=== PATIENT | female | born 2000 | race Caucasian/White ===

== ENCOUNTER 2022-07-28 12:47 | Emergency (ER) | payer OTHER, SELFPAY ==
[2022-07-28 12:56] VITALS: BP 111/81; PULSE 113; RESP 16; TEMP 36.7; O2SAT 100; BMI 21.5
--- NOTE | 2022-07-28 12:56 | ED.NAVMDI ---
HPI - Nausea/Vomiting/Diarrhea General Chief complaint: Nausea/Vomiting/Diarrhea <SLIM Lizarraga Last Filed: 07/28/22 13:09> Stated complaint: vomiting diarrhea <SLIM Lizarraga Last Filed: 07/28/22 13:09> Time Seen by Provider: 07/28/22 15:48 <SLIM Lizarraga Last Filed: 07/28/22 13:09> Source: patient and family <Santino Brito - Last Filed: 07/28/22 18:47> Limitations: no limitations <Santino Brito - Last Filed: 07/28/22 18:47> History of Present Illness HPI Narrative: 22-year-old female with diffuse crampy abdominal pain saddle with nausea vomiting diarrhea last night. Unable to keep anything down. Patient has a history of ruptured ovarian cyst in the past in [place]. Patient takes no prescribed medication at this time. 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 Symptoms are moderate. No other complaints at this time. No recent travel history. Pain is sharp in nature and very crampy. <Santino Brito - Last Filed: 07/28/22 18:47> Related Data Home medications: Previous Rx's Medication Instructions Recorded ondansetron 4 mg disintegrating 4 mg PO TID PRN nausea and 07/28/22 tablet vomiting 4 days #12 tabs <SLIM Lizarraga Last Filed: 07/28/22 13:09> Allergies/Adverse reactions: Allergies Allergy/AdvReac Type Severity Reaction Status Date / Time No Known Allergies Allergy Verified 07/28/22 12:57 <SLIM Lizarraga Last Filed: 07/28/22 13:09> Review of Systems Review of Systems: General: No fever, positive chills, positive malaise Ophthalmology: No vision changes, no discharge ENT: No sore throat, no ear pain Cardiovascular: No chest pain, no peripheral edema, no shortness of breath Respiratory: No dyspnea, no sputum production, no cough Muscle skeletal: No malaise, no back pain, no neck pain, no extremity pain GI: Abdominal cramping nausea vomiting diarrhea : No dysuria, no urgency, no frequency Psychiatric: No depression, no suicidal ideation, no homicidal ideation Skin: No rash Immunology: No immunocompromised Hematology: No bleeding, no bruising <Santino Brito - Last Filed: 07/28/22 18:47> [facility] Social History Social History: Social History Alcohol intake: never Smoked in Last 30 Days: No Use of substances other than those prescribed or required for medical reasons: No Advance Directives: No Advance Directives Information Provided: No <SLIM Lizarraga - Last Filed: 07/28/22 13:09> Physical Exam Vital Signs: Vital Signs: Last Vital Signs Temp 98.4 F 07/28/22 17:48 Pulse 100 07/28/22 19:13 Resp 16 07/28/22 19:13 BP 113/69 07/28/22 19:13 Pulse Ox 96 07/28/22 19:13 O2 Del Method Room Air 07/28/22 19:13 BMI result Body Mass Index 21.5 <SLIM Lizarraga - Last Filed: 07/28/22 13:09> Vital Signs: Last Vital Signs Temp 98.4 F 07/28/22 17:48 Pulse 100 07/28/22 19:13 Resp 16 07/28/22 19:13 BP 113/69 07/28/22 19:13 Pulse Ox 96 07/28/22 19:13 O2 Del Method Room Air 07/28/22 19:13 BMI result Body Mass Index 21.5 <Santino Brito - Last Filed: 07/28/22 18:47> Vital Signs: Last Vital Signs Temp 98.4 F 07/28/22 17:48 Pulse 100 07/28/22 19:13 Resp 16 07/28/22 19:13 BP 113/69 07/28/22 19:13 Pulse Ox 96 07/28/22 19:13 O2 Del Method Room Air 07/28/22 19:13 BMI result Body Mass Index 21.5 <Kimberly Barakat NP - Last Filed: 07/29/22 11:33> General appearance: Awake, alert, cooperative, pale Skin: Warm, dry, no rash Eyes: PERRL, EOMI, no icterus ENT: Mucosa is dry oropharynx is otherwise clear uvula is midline Neck: Soft supple full range of motion, no nuchal rigidity Pulmonary: Breath sounds clear to auscultation bilaterally, no accessory muscle use Cardiovascular: Regular rate and rhythm, no murmurs and rubs Abdomen: Abdomen soft no rebound or guarding positive bowel sounds Extremities: No deformity, nontender, no peripheral edema noted Neuro: Alert oriented x3, no focal deficit Psych: Normal affect <Santino Brito - Last Filed: 07/28/22 18:47> Course Course Course Narrative: RME: 22yo F w/no sig PMHx c/o abdominal pain/cramping, watery diarrhea & vomiting since 3AM. LMP 3 years ago, pt with IUD. Denies urinary sx, recent travel, suspicious food intake. Denies recent abx Appears uncomfortable, abdomen soft/nontender Labs, UA, , stool studies ordered Full HPI, ROS and PE to be performed by primary ED provider. <SLIM Lizarraga - Last Filed: 07/28/22 13:09> Reevaluation(s) Reevaluation #1: Called informed that patient's stool sample was positive for norovirus. She is feeling better today <Kimberly Barakat NP - Last Filed: 07/29/22 11:33> Medications Administered Discontinued Medications Generic Name Dose Route Start Last Admin Trade Name Freq PRN Reason Stop Dose Admin Sodium Chloride 1,000 mls @ 999 mls/hr 07/28/22 16:00 07/28/22 16:04 Ns IV 07/28/22 17:00 999 mls/hr .Q1H1M TYLER Administration Sodium Chloride 1,000 mls @ 999 mls/hr 07/28/22 17:15 07/28/22 17:37 Ns IV 07/28/22 18:15 999 mls/hr .Q1H1M TYLER Administration Ondansetron HCl 4 mg 07/28/22 15:54 07/28/22 16:04 Ondansetron Hcl 4 Mg/2 Ml Vial IVPUSH 07/28/22 15:55 4 mg ONCE ONE Administration <SLIM Lizarraga - Last Filed: 07/28/22 13:09> Medications Administered Discontinued Medications Generic Name Dose Route Start Last Admin Trade Name Freq PRN Reason Stop Dose Admin Sodium Chloride 1,000 mls @ 999 mls/hr 07/28/22 16:00 07/28/22 16:04 Ns IV 07/28/22 17:00 999 mls/hr .Q1H1M TYLER Administration Sodium Chloride 1,000 mls @ 999 mls/hr 07/28/22 17:15 07/28/22 17:37 Ns IV 07/28/22 18:15 999 mls/hr .Q1H1M TYLER Administration Ondansetron HCl 4 mg 07/28/22 15:54 07/28/22 16:04 Ondansetron Hcl 4 Mg/2 Ml Vial IVPUSH 07/28/22 15:55 4 mg ONCE ONE Administration <Santino Brito - Last Filed: 07/28/22 18:47> Medications Administered Discontinued Medications Generic Name Dose Route Start Last Admin Trade Name Edvin PRN Reason Stop Dose Admin Sodium Chloride 1,000 mls @ 999 mls/hr 07/28/22 16:00 07/28/22 16:04 Ns IV 07/28/22 17:00 999 mls/hr .Q1H1M TYLER Administration Sodium Chloride 1,000 mls @ 999 mls/hr 07/28/22 17:15 07/28/22 17:37 Ns IV 07/28/22 18:15 999 mls/hr .Q1H1M TYLER Administration Ondansetron HCl 4 mg 07/28/22 15:54 07/28/22 16:04 Ondansetron Hcl 4 Mg/2 Ml Vial IVPUSH 07/28/22 15:55 4 mg ONCE ONE Administration <Kimberly Barakat NP - Last Filed: 07/29/22 11:33> Medical Decision Making Medical Decision Making MDM Narrative: Viral gastroenteritis Dehydration C diff less likely infectious diarrhea Viral syndrome No onset diabetes 22-year-old female with 24 hour history nausea vomiting diarrhea crampy abdominal pain. Decreased p.o. intake and concerns for dehydration. No similar episodes in the past. No recent travel history. 1000 mL normal saline IV bolus 4 mg Zofran IV Four 20:[address] Jacob will repeat BMP after hydration. Patient was noted to have elevated glucose and lower bicarb likely secondary to dehydration 17:03 will repeat 1000 mL normal saline IV bolus per for recheck and BMP Blood sugar has decreased electrolytes have improved electrolyte imbalance likely secondary to dehydration recommended follow-up electrolytes within 1 week and return if symptoms worsen <Santino Brito - Last Filed: 07/28/22 18:47> Lab Data Result Diagrams: 07/28/22 13:34 07/28/22 13:34 <SLIM Lizarraga - Last Filed: 07/28/22 13:09> Labs: Lab Results 07/28/22 07/28/22 07/28/22 Range/Units 13:34 13:34 13:34 WBC 10.1 (4.8-10.8) X10*3/uL RBC 5.29 (4.20-5.50) X10*6/uL Hgb 15.5 (12.0-16.0) g/dl Hct 45.0 (37.0-47.0) % MCV 85.1 (80.0-98.0) fL MCH 29.3 (27.0-33.0) pg MCHC 34.4 (31.0-35.0) g/dl RDW 12.2 (11.0-16.0) % Plt Count 231 (160-400) X10*3/uL MPV 10.1 (9.4-12.3) fL Immature Gran % (Auto) 0.4 (0.0-0.4) % Neut % (Auto) 93.7 H (45-73) % Lymph % (Auto) 2.0 L (20-40) % [place] % (Auto) 3.6 (2-11) % Eos % (Auto) 0.1 (0-4) % Baso % (Auto) 0.2 (0-2) % Lymph # (Auto) 0.2 L (1.2-4.9) X10*3/uL [place] # (Auto) 0.4 (0.1-1.2) X10*3/uL Eos # (Auto) 0.0 (0.0-0.4) X10*3/uL Baso # (Auto) 0.0 (0.0-0.2) X10*3/uL Abs Immat Gran (auto) 0.04 H (0.00-0.03) X10*3/uL Absolute Neuts (auto) 9.5 H (2.0-8.3) x10*3/uL Absolute Nucleated RBC 0.000 (0.0-0.012) X10*3/uL Nucleated RBC % (auto) 0.0 (0.0-0.2) /100WBC Smear Tech's Comments VERIFIED Sodium 138 (135-145) mmol/L Potassium 4.7 (3.3-5.1) mmol/L Chloride 107 (96-108) mmol/L Carbon Dioxide 17 L (22-29) mmol/L Anion Gap 19 (12-20) BUN 10 (9-16) mg/dL Creatinine 1.01 (0.5-1.4) mg/dL Estim Creat Clear Calc 74.8 Estimated GFR > 60 Random Glucose 184 H (60-115) mg/dL Calcium 10.3 H (8.4-10.2) mg/dL Magnesium 1.9 (1.6-2.6) mg/dL Total Bilirubin 1.3 H (0.0-1.0) mg/dL Direct Bilirubin 0.4 (0.0-0.5) mg/dL AST 20 (5-31) U/L ALT 13 (0-31) U/L Alkaline Phosphatase 64 (39-117) U/L Total Protein 8.4 H (6.5-8.0) g/dL Albumin 5.1 H (3.5-5.0) g/dL Lipase 22 (8-78) U/L Urine Color Dark Yellow Urine Appearance Cloudy Urine pH 6.0 (5.0-9.0) Ur Specific [place] >= 1.030 H (1.005-1.025) Urine Protein 30 (1+) H (Neg-Trace) mg/dL Urine Glucose (UA) Negative (Negative) mg/dL Urine Ketones >=160 (Negative) mg/dL Urine Blood Negative (Negative) Urine Nitrite Negative (Negative) Ur Leukocyte Esterase Negative (Negative) Urine RBC 0-2 (0-2) /HPF Urine WBC 0-5 (0-5) /HPF Ur Squamous Epith Cells 6-10 (0-2) /HPF Urine Bacteria None Seen (None Seen) Hyaline Casts 3-5 (0-2) /LPF Urine Test (NEGATIVE) Stl C. cayetanensis PCR (Not Detect.) Stool Rotavirus A PCR (Not Detect.) Stl Adenov F 40/41 PCR (Not Detect.) Stool Astrovirus (PCR) (Not Detect.) Stool Campylobacter PCR (Not Detect.) Stool Cryptosporidium PCR (Not Detect.) Stl Sh Tox Pr E STEC PCR (Not Detect.) Stool E coli O157 PCR (Not Detect.) Stl Enterotoxigenic E PCR (Not Detect.) Stool EPEC (PCR) (Not Detect.) Stool EAEC (PCR) (Not Detect.) Stl E. histolytica PCR (Not Detect.) Stool Giardia Lamblia PCR (Not Detect.) Stl P. shigelloides PCR (Not Detect.) Stool Salmonella PCR (Not Detect.) Stool Sapovirus (PCR) (Not Detect.) Stl Shigella/EIEC PCR (Not Detect.) St Y.enterocolitica PCR (Not Detect.) Stool Vibrio (PCR) (Not Detect.) Stl Vibrio cholerae PCR (Not Detect.) Stl Norovirus GI/GII PCR (Not Detect.) C. difficile Tox B Gene (Negative) 07/28/22 07/28/22 07/28/22 Range/Units 13:34 13:34 13:34 WBC (4.8-10.8) X10*3/uL RBC (4.20-5.50) X10*6/uL Hgb (12.0-16.0) g/dl Hct (37.0-47.0) % MCV (80.0-98.0) fL MCH (27.0-33.0) pg MCHC (31.0-35.0) g/dl RDW (11.0-16.0) % Plt Count (160-400) X10*3/uL MPV (9.4-12.3) fL Immature Gran % (Auto) (0.0-0.4) % Neut % (Auto) (45-73) % Lymph % (Auto) (20-40) % [place] % (Auto) (2-11) % Eos % (Auto) (0-4) % Baso % (Auto) (0-2) % Lymph # (Auto) (1.2-4.9) X10*3/uL [place] # (Auto) (0.1-1.2) X10*3/uL Eos # (Auto) (0.0-0.4) X10*3/uL Baso # (Auto) (0.0-0.2) X10*3/uL Abs Immat Gran (auto) (0.00-0.03) X10*3/uL Absolute Neuts (auto) (2.0-8.3) x10*3/uL Absolute Nucleated RBC (0.0-0.012) X10*3/uL Nucleated RBC % (auto) (0.0-0.2) /100WBC Smear Tech's Comments Sodium (135-145) mmol/L Potassium (3.3-5.1) mmol/L Chloride (96-108) mmol/L Carbon Dioxide (22-29) mmol/L Anion Gap (12-20) BUN (9-16) mg/dL Creatinine (0.5-1.4) mg/dL Estim Creat Clear Calc Estimated GFR Random Glucose (60-115) mg/dL Calcium (8.4-10.2) mg/dL Magnesium (1.6-2.6) mg/dL Total Bilirubin (0.0-1.0) mg/dL Direct Bilirubin (0.0-0.5) mg/dL AST (5-31) U/L ALT (0-31) U/L Alkaline Phosphatase (39-117) U/L Total Protein (6.5-8.0) g/dL Albumin (3.5-5.0) g/dL Lipase (8-78) U/L Urine Color Urine Appearance Urine pH (5.0-9.0) Ur Specific [place] (1.005-1.025) Urine Protein (Neg-Trace) mg/dL Urine Glucose (UA) (Negative) mg/dL Urine Ketones (Negative) mg/dL Urine Blood (Negative) Urine Nitrite (Negative) Ur Leukocyte Esterase (Negative) Urine RBC (0-2) /HPF Urine WBC (0-5) /HPF Ur Squamous Epith Cells (0-2) /HPF Urine Bacteria (None Seen) Hyaline Casts (0-2) /LPF Urine Test NEGATIVE (NEGATIVE) Stl C. cayetanensis PCR Not Detected (Not Detect.) Stool Rotavirus A PCR Not Detected (Not Detect.) Stl Adenov F 40/41 PCR Not Detected (Not Detect.) Stool Astrovirus (PCR) Not Detected (Not Detect.) Stool Campylobacter PCR Not Detected (Not Detect.) Stool Cryptosporidium PCR Not Detected (Not Detect.) Stl Sh Tox Pr E STEC PCR Not Detected (Not Detect.) Stool E coli O157 PCR Not applicable (Not Detect.) Stl Enterotoxigenic E PCR Not Detected (Not Detect.) Stool EPEC (PCR) Not Detected (Not Detect.) Stool EAEC (PCR) Not Detected (Not Detect.) Stl E. histolytica PCR Not Detected (Not Detect.) Stool Giardia Lamblia PCR Not Detected (Not Detect.) Stl P. shigelloides PCR Not Detected (Not Detect.) Stool Salmonella PCR Not Detected (Not Detect.) Stool Sapovirus (PCR) Not Detected (Not Detect.) Stl Shigella/EIEC PCR Not Detected (Not Detect.) St Y.enterocolitica PCR Not Detected (Not Detect.) Stool Vibrio (PCR) Not Detected (Not Detect.) Stl Vibrio cholerae PCR Not Detected (Not Detect.) Stl Norovirus GI/GII PCR Detected A (Not Detect.) C. difficile Tox B Gene NEGATIVE (Negative) 07/28/22 Range/Units 18:11 WBC (4.8-10.8) X10*3/uL RBC (4.20-5.50) X10*6/uL Hgb (12.0-16.0) g/dl Hct (37.0-47.0) % MCV (80.0-98.0) fL MCH (27.0-33.0) pg MCHC (31.0-35.0) g/dl RDW (11.0-16.0) % Plt Count (160-400) X10*3/uL MPV (9.4-12.3) fL Immature Gran % (Auto) (0.0-0.4) % Neut % (Auto) (45-73) % Lymph % (Auto) (20-40) % [place] % (Auto) (2-11) % Eos % (Auto) (0-4) % Baso % (Auto) (0-2) % Lymph # (Auto) (1.2-4.9) X10*3/uL [place] # (Auto) (0.1-1.2) X10*3/uL Eos # (Auto) (0.0-0.4) X10*3/uL Baso # (Auto) (0.0-0.2) X10*3/uL Abs Immat Gran (auto) (0.00-0.03) X10*3/uL Absolute Neuts (auto) (2.0-8.3) x10*3/uL Absolute Nucleated RBC (0.0-0.012) X10*3/uL Nucleated RBC % (auto) (0.0-0.2) /100WBC Smear Tech's Comments Sodium 139 (135-145) mmol/L Potassium 4.0 (3.3-5.1) mmol/L Chloride 112 H (96-108) mmol/L Carbon Dioxide 19 L (22-29) mmol/L Anion Gap 12 (12-20) BUN 8 L (9-16) mg/dL Creatinine 0.75 (0.5-1.4) mg/dL Estim Creat Clear Calc 100.7 Estimated GFR > 60 Random Glucose 96 (60-115) mg/dL Calcium 8.3 L D (8.4-10.2) mg/dL Magnesium (1.6-2.6) mg/dL Total Bilirubin (0.0-1.0) mg/dL Direct Bilirubin (0.0-0.5) mg/dL AST (5-31) U/L ALT (0-31) U/L Alkaline Phosphatase (39-117) U/L Total Protein (6.5-8.0) g/dL Albumin (3.5-5.0) g/dL Lipase (8-78) U/L Urine Color Urine Appearance Urine pH (5.0-9.0) Ur Specific [place] (1.005-1.025) Urine Protein (Neg-Trace) mg/dL Urine Glucose (UA) (Negative) mg/dL Urine Ketones (Negative) mg/dL Urine Blood (Negative) Urine Nitrite (Negative) Ur Leukocyte Esterase (Negative) Urine RBC (0-2) /HPF Urine WBC (0-5) /HPF Ur Squamous Epith Cells (0-2) /HPF Urine Bacteria (None Seen) Hyaline Casts (0-2) /LPF Urine Test (NEGATIVE) Stl C. cayetanensis PCR (Not Detect.) Stool Rotavirus A PCR (Not Detect.) Stl Adenov F 40/41 PCR (Not Detect.) Stool Astrovirus (PCR) (Not Detect.) Stool Campylobacter PCR (Not Detect.) Stool Cryptosporidium PCR (Not Detect.) Stl Sh Tox Pr E STEC PCR (Not Detect.) Stool E coli O157 PCR (Not Detect.) Stl Enterotoxigenic E PCR (Not Detect.) Stool EPEC (PCR) (Not Detect.) Stool EAEC (PCR) (Not Detect.) Stl E. histolytica PCR (Not Detect.) Stool Giardia Lamblia PCR (Not Detect.) Stl P. shigelloides PCR (Not Detect.) Stool Salmonella PCR (Not Detect.) Stool Sapovirus (PCR) (Not Detect.) Stl Shigella/EIEC PCR (Not Detect.) St Y.enterocolitica PCR (Not Detect.) Stool Vibrio (PCR) (Not Detect.) Stl Vibrio cholerae PCR (Not Detect.) Stl Norovirus GI/GII PCR (Not Detect.) C. difficile Tox B Gene (Negative) <SLIM Lizarraga - Last Filed: 07/28/22 13:09> Lab Results 07/28/22 07/28/22 07/28/22 Range/Units 13:34 13:34 13:34 WBC 10.1 (4.8-10.8) X10*3/uL RBC 5.29 (4.20-5.50) X10*6/uL Hgb 15.5 (12.0-16.0) g/dl Hct 45.0 (37.0-47.0) % MCV 85.1 (80.0-98.0) fL MCH 29.3 (27.0-33.0) pg MCHC 34.4 (31.0-35.0) g/dl RDW 12.2 (11.0-16.0) % Plt Count 231 (160-400) X10*3/uL MPV 10.1 (9.4-12.3) fL Immature Gran % (Auto) 0.4 (0.0-0.4) % Neut % (Auto) 93.7 H (45-73) % Lymph % (Auto) 2.0 L (20-40) % [place] % (Auto) 3.6 (2-11) % Eos % (Auto) 0.1 (0-4) % Baso % (Auto) 0.2 (0-2) % Lymph # (Auto) 0.2 L (1.2-4.9) X10*3/uL [place] # (Auto) 0.4 (0.1-1.2) X10*3/uL Eos # (Auto) 0.0 (0.0-0.4) X10*3/uL Baso # (Auto) 0.0 (0.0-0.2) X10*3/uL Abs Immat Gran (auto) 0.04 H (0.00-0.03) X10*3/uL Absolute Neuts (auto) 9.5 H (2.0-8.3) x10*3/uL Absolute Nucleated RBC 0.000 (0.0-0.012) X10*3/uL Nucleated RBC % (auto) 0.0 (0.0-0.2) /100WBC Smear Tech's Comments VERIFIED Sodium 138 (135-145) mmol/L Potassium 4.7 (3.3-5.1) mmol/L Chloride 107 (96-108) mmol/L Carbon Dioxide 17 L (22-29) mmol/L Anion Gap 19 (12-20) BUN 10 (9-16) mg/dL Creatinine 1.01 (0.5-1.4) mg/dL Estim Creat Clear Calc 74.8 Estimated GFR > 60 Random Glucose 184 H (60-115) mg/dL Calcium 10.3 H (8.4-10.2) mg/dL Magnesium 1.9 (1.6-2.6) mg/dL Total Bilirubin 1.3 H (0.0-1.0) mg/dL Direct Bilirubin 0.4 (0.0-0.5) mg/dL AST 20 (5-31) U/L ALT 13 (0-31) U/L Alkaline Phosphatase 64 (39-117) U/L Total Protein 8.4 H (6.5-8.0) g/dL Albumin 5.1 H (3.5-5.0) g/dL Lipase 22 (8-78) U/L Urine Color Dark Yellow Urine Appearance Cloudy Urine pH 6.0 (5.0-9.0) Ur Specific [place] >= 1.030 H (1.005-1.025) Urine Protein 30 (1+) H (Neg-Trace) mg/dL Urine Glucose (UA) Negative (Negative) mg/dL Urine Ketones >=160 (Negative) mg/dL Urine Blood Negative (Negative) Urine Nitrite Negative (Negative) Ur Leukocyte Esterase Negative (Negative) Urine RBC 0-2 (0-2) /HPF Urine WBC 0-5 (0-5) /HPF Ur Squamous Epith Cells 6-10 (0-2) /HPF Urine Bacteria None Seen (None Seen) Hyaline Casts 3-5 (0-2) /LPF Urine Test (NEGATIVE) Stl C. cayetanensis PCR (Not Detect.) Stool Rotavirus A PCR (Not Detect.) Stl Adenov F 40/41 PCR (Not Detect.) Stool Astrovirus (PCR) (Not Detect.) Stool Campylobacter PCR (Not Detect.) Stool Cryptosporidium PCR (Not Detect.) Stl Sh Tox Pr E STEC PCR (Not Detect.) Stool E coli O157 PCR (Not Detect.) Stl Enterotoxigenic E PCR (Not Detect.) Stool EPEC (PCR) (Not Detect.) Stool EAEC (PCR) (Not Detect.) Stl E. histolytica PCR (Not Detect.) Stool Giardia Lamblia PCR (Not Detect.) Stl P. shigelloides PCR (Not Detect.) Stool Salmonella PCR (Not Detect.) Stool Sapovirus (PCR) (Not Detect.) Stl Shigella/EIEC PCR (Not Detect.) St Y.enterocolitica PCR (Not Detect.) Stool Vibrio (PCR) (Not Detect.) Stl Vibrio cholerae PCR (Not Detect.) Stl Norovirus GI/GII PCR (Not Detect.) C. difficile Tox B Gene (Negative) 07/28/22 07/28/22 07/28/22 Range/Units 13:34 13:34 13:34 WBC (4.8-10.8) X10*3/uL RBC (4.20-5.50) X10*6/uL Hgb (12.0-16.0) g/dl Hct (37.0-47.0) % MCV (80.0-98.0) fL MCH (27.0-33.0) pg MCHC (31.0-35.0) g/dl RDW (11.0-16.0) % Plt Count (160-400) X10*3/uL MPV (9.4-12.3) fL Immature Gran % (Auto) (0.0-0.4) % Neut % (Auto) (45-73) % Lymph % (Auto) (20-40) % [place] % (Auto) (2-11) % Eos % (Auto) (0-4) % Baso % (Auto) (0-2) % Lymph # (Auto) (1.2-4.9) X10*3/uL [place] # (Auto) (0.1-1.2) X10*3/uL Eos # (Auto) (0.0-0.4) X10*3/uL Baso # (Auto) (0.0-0.2) X10*3/uL Abs Immat Gran (auto) (0.00-0.03) X10*3/uL Absolute Neuts (auto) (2.0-8.3) x10*3/uL Absolute Nucleated RBC (0.0-0.012) X10*3/uL Nucleated RBC % (auto) (0.0-0.2) /100WBC Smear Tech's Comments Sodium (135-145) mmol/L Potassium (3.3-5.1) mmol/L Chloride (96-108) mmol/L Carbon Dioxide (22-29) mmol/L Anion Gap (12-20) BUN (9-16) mg/dL Creatinine (0.5-1.4) mg/dL Estim Creat Clear Calc Estimated GFR Random Glucose (60-115) mg/dL Calcium (8.4-10.2) mg/dL Magnesium (1.6-2.6) mg/dL Total Bilirubin (0.0-1.0) mg/dL Direct Bilirubin (0.0-0.5) mg/dL AST (5-31) U/L ALT (0-31) U/L Alkaline Phosphatase (39-117) U/L Total Protein (6.5-8.0) g/dL Albumin (3.5-5.0) g/dL Lipase (8-78) U/L Urine Color Urine Appearance Urine pH (5.0-9.0) Ur Specific [place] (1.005-1.025) Urine Protein (Neg-Trace) mg/dL Urine Glucose (UA) (Negative) mg/dL Urine Ketones (Negative) mg/dL Urine Blood (Negative) Urine Nitrite (Negative) Ur Leukocyte Esterase (Negative) Urine RBC (0-2) /HPF Urine WBC (0-5) /HPF Ur Squamous Epith Cells (0-2) /HPF Urine Bacteria (None Seen) Hyaline Casts (0-2) /LPF Urine Test NEGATIVE (NEGATIVE) Stl C. cayetanensis PCR Not Detected (Not Detect.) Stool Rotavirus A PCR Not Detected (Not Detect.) Stl Adenov F 40/41 PCR Not Detected (Not Detect.) Stool Astrovirus (PCR) Not Detected (Not Detect.) Stool Campylobacter PCR Not Detected (Not Detect.) Stool Cryptosporidium PCR Not Detected (Not Detect.) Stl Sh Tox Pr E STEC PCR Not Detected (Not Detect.) Stool E coli O157 PCR Not applicable (Not Detect.) Stl Enterotoxigenic E PCR Not Detected (Not Detect.) Stool EPEC (PCR) Not Detected (Not Detect.) Stool EAEC (PCR) Not Detected (Not Detect.) Stl E. histolytica PCR Not Detected (Not Detect.) Stool Giardia Lamblia PCR Not Detected (Not Detect.) Stl P. shigelloides PCR Not Detected (Not Detect.) Stool Salmonella PCR Not Detected (Not Detect.) Stool Sapovirus (PCR) Not Detected (Not Detect.) Stl Shigella/EIEC PCR Not Detected (Not Detect.) St Y.enterocolitica PCR Not Detected (Not Detect.) Stool Vibrio (PCR) Not Detected (Not Detect.) Stl Vibrio cholerae PCR Not Detected (Not Detect.) Stl Norovirus GI/GII PCR Detected A (Not Detect.) C. difficile Tox B Gene NEGATIVE (Negative) 07/28/22 Range/Units 18:11 WBC (4.8-10.8) X10*3/uL RBC (4.20-5.50) X10*6/uL Hgb (12.0-16.0) g/dl Hct (37.0-47.0) % MCV (80.0-98.0) fL MCH (27.0-33.0) pg MCHC (31.0-35.0) g/dl RDW (11.0-16.0) % Plt Count (160-400) X10*3/uL MPV (9.4-12.3) fL Immature Gran % (Auto) (0.0-0.4) % Neut % (Auto) (45-73) % Lymph % (Auto) (20-40) % [place] % (Auto) (2-11) % Eos % (Auto) (0-4) % Baso % (Auto) (0-2) % Lymph # (Auto) (1.2-4.9) X10*3/uL [place] # (Auto) (0.1-1.2) X10*3/uL Eos # (Auto) (0.0-0.4) X10*3/uL Baso # (Auto) (0.0-0.2) X10*3/uL Abs Immat Gran (auto) (0.00-0.03) X10*3/uL Absolute Neuts (auto) (2.0-8.3) x10*3/uL Absolute Nucleated RBC (0.0-0.012) X10*3/uL Nucleated RBC % (auto) (0.0-0.2) /100WBC Smear Tech's Comments Sodium 139 (135-145) mmol/L Potassium 4.0 (3.3-5.1) mmol/L Chloride 112 H (96-108) mmol/L Carbon Dioxide 19 L (22-29) mmol/L Anion Gap 12 (12-20) BUN 8 L (9-16) mg/dL Creatinine 0.75 (0.5-1.4) mg/dL Estim Creat Clear Calc 100.7 Estimated GFR > 60 Random Glucose 96 (60-115) mg/dL Calcium 8.3 L D (8.4-10.2) mg/dL Magnesium (1.6-2.6) mg/dL Total Bilirubin (0.0-1.0) mg/dL Direct Bilirubin (0.0-0.5) mg/dL AST (5-31) U/L ALT (0-31) U/L Alkaline Phosphatase (39-117) U/L Total Protein (6.5-8.0) g/dL Albumin (3.5-5.0) g/dL Lipase (8-78) U/L Urine Color Urine Appearance Urine pH (5.0-9.0) Ur Specific [place] (1.005-1.025) Urine Protein (Neg-Trace) mg/dL Urine Glucose (UA) (Negative) mg/dL Urine Ketones (Negative) mg/dL Urine Blood (Negative) Urine Nitrite (Negative) Ur Leukocyte Esterase (Negative) Urine RBC (0-2) /HPF Urine WBC (0-5) /HPF Ur Squamous Epith Cells (0-2) /HPF Urine Bacteria (None Seen) Hyaline Casts (0-2) /LPF Urine Test (NEGATIVE) Stl C. cayetanensis PCR (Not Detect.) Stool Rotavirus A PCR (Not Detect.) Stl Adenov F 40/41 PCR (Not Detect.) Stool Astrovirus (PCR) (Not Detect.) Stool Campylobacter PCR (Not Detect.) Stool Cryptosporidium PCR (Not Detect.) Stl Sh Tox Pr E STEC PCR (Not Detect.) Stool E coli O157 PCR (Not Detect.) Stl Enterotoxigenic E PCR (Not Detect.) Stool EPEC (PCR) (Not Detect.) Stool EAEC (PCR) (Not Detect.) Stl E. histolytica PCR (Not Detect.) Stool Giardia Lamblia PCR (Not Detect.) Stl P. shigelloides PCR (Not Detect.) Stool Salmonella PCR (Not Detect.) Stool Sapovirus (PCR) (Not Detect.) Stl Shigella/EIEC PCR (Not Detect.) St Y.enterocolitica PCR (Not Detect.) Stool Vibrio (PCR) (Not Detect.) Stl Vibrio cholerae PCR (Not Detect.) Stl Norovirus GI/GII PCR (Not Detect.) C. difficile Tox B Gene (Negative) <Santino Brito - Last Filed: 07/28/22 18:47> Lab Results 07/28/22 07/28/22 07/28/22 Range/Units 13:34 13:34 13:34 WBC 10.1 (4.8-10.8) X10*3/uL RBC 5.29 (4.20-5.50) X10*6/uL Hgb 15.5 (12.0-16.0) g/dl Hct 45.0 (37.0-47.0) % MCV 85.1 (80.0-98.0) fL MCH 29.3 (27.0-33.0) pg MCHC 34.4 (31.0-35.0) g/dl RDW 12.2 (11.0-16.0) % Plt Count 231 (160-400) X10*3/uL MPV 10.1 (9.4-12.3) fL Immature Gran % (Auto) 0.4 (0.0-0.4) % Neut % (Auto) 93.7 H (45-73) % Lymph % (Auto) 2.0 L (20-40) % [place] % (Auto) 3.6 (2-11) % Eos % (Auto) 0.1 (0-4) % Baso % (Auto) 0.2 (0-2) % Lymph # (Auto) 0.2 L (1.2-4.9) X10*3/uL [place] # (Auto) 0.4 (0.1-1.2) X10*3/uL Eos # (Auto) 0.0 (0.0-0.4) X10*3/uL Baso # (Auto) 0.0 (0.0-0.2) X10*3/uL Abs Immat Gran (auto) 0.04 H (0.00-0.03) X10*3/uL Absolute Neuts (auto) 9.5 H (2.0-8.3) x10*3/uL Absolute Nucleated RBC 0.000 (0.0-0.012) X10*3/uL Nucleated RBC % (auto) 0.0 (0.0-0.2) /100WBC Smear Tech's Comments VERIFIED Sodium 138 (135-145) mmol/L Potassium 4.7 (3.3-5.1) mmol/L Chloride 107 (96-108) mmol/L Carbon Dioxide 17 L (22-29) mmol/L Anion Gap 19 (12-20) BUN 10 (9-16) mg/dL Creatinine 1.01 (0.5-1.4) mg/dL Estim Creat Clear Calc 74.8 Estimated GFR > 60 Random Glucose 184 H (60-115) mg/dL Calcium 10.3 H (8.4-10.2) mg/dL Magnesium 1.9 (1.6-2.6) mg/dL Total Bilirubin 1.3 H (0.0-1.0) mg/dL Direct Bilirubin 0.4 (0.0-0.5) mg/dL AST 20 (5-31) U/L ALT 13 (0-31) U/L Alkaline Phosphatase 64 (39-117) U/L Total Protein 8.4 H (6.5-8.0) g/dL Albumin 5.1 H (3.5-5.0) g/dL Lipase 22 (8-78) U/L Urine Color Dark Yellow Urine Appearance Cloudy Urine pH 6.0 (5.0-9.0) Ur Specific [place] >= 1.030 H (1.005-1.025) Urine Protein 30 (1+) H (Neg-Trace) mg/dL Urine Glucose (UA) Negative (Negative) mg/dL Urine Ketones >=160 (Negative) mg/dL Urine Blood Negative (Negative) Urine Nitrite Negative (Negative) Ur Leukocyte Esterase Negative (Negative) Urine RBC 0-2 (0-2) /HPF Urine WBC 0-5 (0-5) /HPF Ur Squamous Epith Cells 6-10 (0-2) /HPF Urine Bacteria None Seen (None Seen) Hyaline Casts 3-5 (0-2) /LPF Urine Test (NEGATIVE) Stl C. cayetanensis PCR (Not Detect.) Stool Rotavirus A PCR (Not Detect.) Stl Adenov F 40/41 PCR (Not Detect.) Stool Astrovirus (PCR) (Not Detect.) Stool Campylobacter PCR (Not Detect.) Stool Cryptosporidium PCR (Not Detect.) Stl Sh Tox Pr E STEC PCR (Not Detect.) Stool E coli O157 PCR (Not Detect.) Stl Enterotoxigenic E PCR (Not Detect.) Stool EPEC (PCR) (Not Detect.) Stool EAEC (PCR) (Not Detect.) Stl E. histolytica PCR (Not Detect.) Stool Giardia Lamblia PCR (Not Detect.) Stl P. shigelloides PCR (Not Detect.) Stool Salmonella PCR (Not Detect.) Stool Sapovirus (PCR) (Not Detect.) Stl Shigella/EIEC PCR (Not Detect.) St Y.enterocolitica PCR (Not Detect.) Stool Vibrio (PCR) (Not Detect.) Stl Vibrio cholerae PCR (Not Detect.) Stl Norovirus GI/GII PCR (Not Detect.) C. difficile Tox B Gene (Negative) 07/28/22 07/28/22 07/28/22 Range/Units 13:34 13:34 13:34 WBC (4.8-10.8) X10*3/uL RBC (4.20-5.50) X10*6/uL Hgb (12.0-16.0) g/dl Hct (37.0-47.0) % MCV (80.0-98.0) fL MCH (27.0-33.0) pg MCHC (31.0-35.0) g/dl RDW (11.0-16.0) % Plt Count (160-400) X10*3/uL MPV (9.4-12.3) fL Immature Gran % (Auto) (0.0-0.4) % Neut % (Auto) (45-73) % Lymph % (Auto) (20-40) % [place] % (Auto) (2-11) % Eos % (Auto) (0-4) % Baso % (Auto) (0-2) % Lymph # (Auto) (1.2-4.9) X10*3/uL [place] # (Auto) (0.1-1.2) X10*3/uL Eos # (Auto) (0.0-0.4) X10*3/uL Baso # (Auto) (0.0-0.2) X10*3/uL Abs Immat Gran (auto) (0.00-0.03) X10*3/uL Absolute Neuts (auto) (2.0-8.3) x10*3/uL Absolute Nucleated RBC (0.0-0.012) X10*3/uL Nucleated RBC % (auto) (0.0-0.2) /100WBC Smear Tech's Comments Sodium (135-145) mmol/L Potassium (3.3-5.1) mmol/L Chloride (96-108) mmol/L Carbon Dioxide (22-29) mmol/L Anion Gap (12-20) BUN (9-16) mg/dL Creatinine (0.5-1.4) mg/dL Estim Creat Clear Calc Estimated GFR Random Glucose (60-115) mg/dL Calcium (8.4-10.2) mg/dL Magnesium (1.6-2.6) mg/dL Total Bilirubin (0.0-1.0) mg/dL Direct Bilirubin (0.0-0.5) mg/dL AST (5-31) U/L ALT (0-31) U/L Alkaline Phosphatase (39-117) U/L Total Protein (6.5-8.0) g/dL Albumin (3.5-5.0) g/dL Lipase (8-78) U/L Urine Color Urine Appearance Urine pH (5.0-9.0) Ur Specific [place] (1.005-1.025) Urine Protein (Neg-Trace) mg/dL Urine Glucose (UA) (Negative) mg/dL Urine Ketones (Negative) mg/dL Urine Blood (Negative) Urine Nitrite (Negative) Ur Leukocyte Esterase (Negative) Urine RBC (0-2) /HPF Urine WBC (0-5) /HPF Ur Squamous Epith Cells (0-2) /HPF Urine Bacteria (None Seen) Hyaline Casts (0-2) /LPF Urine Test NEGATIVE (NEGATIVE) Stl C. cayetanensis PCR Not Detected (Not Detect.) Stool Rotavirus A PCR Not Detected (Not Detect.) Stl Adenov F 40/41 PCR Not Detected (Not Detect.) Stool Astrovirus (PCR) Not Detected (Not Detect.) Stool Campylobacter PCR Not Detected (Not Detect.) Stool Cryptosporidium PCR Not Detected (Not Detect.) Stl Sh Tox Pr E STEC PCR Not Detected (Not Detect.) Stool E coli O157 PCR Not applicable (Not Detect.) Stl Enterotoxigenic E PCR Not Detected (Not Detect.) Stool EPEC (PCR) Not Detected (Not Detect.) Stool EAEC (PCR) Not Detected (Not Detect.) Stl E. histolytica PCR Not Detected (Not Detect.) Stool Giardia Lamblia PCR Not Detected (Not Detect.) Stl P. shigelloides PCR Not Detected (Not Detect.) Stool Salmonella PCR Not Detected (Not Detect.) Stool Sapovirus (PCR) Not Detected (Not Detect.) Stl Shigella/EIEC PCR Not Detected (Not Detect.) St Y.enterocolitica PCR Not Detected (Not Detect.) Stool Vibrio (PCR) Not Detected (Not Detect.) Stl Vibrio cholerae PCR Not Detected (Not Detect.) Stl Norovirus GI/GII PCR Detected A (Not Detect.) C. difficile Tox B Gene NEGATIVE (Negative) 07/28/22 Range/Units 18:11 WBC (4.8-10.8) X10*3/uL RBC (4.20-5.50) X10*6/uL Hgb (12.0-16.0) g/dl Hct (37.0-47.0) % MCV (80.0-98.0) fL MCH (27.0-33.0) pg MCHC (31.0-35.0) g/dl RDW (11.0-16.0) % Plt Count (160-400) X10*3/uL MPV (9.4-12.3) fL Immature Gran % (Auto) (0.0-0.4) % Neut % (Auto) (45-73) % Lymph % (Auto) (20-40) % [place] % (Auto) (2-11) % Eos % (Auto) (0-4) % Baso % (Auto) (0-2) % Lymph # (Auto) (1.2-4.9) X10*3/uL [place] # (Auto) (0.1-1.2) X10*3/uL Eos # (Auto) (0.0-0.4) X10*3/uL Baso # (Auto) (0.0-0.2) X10*3/uL Abs Immat Gran (auto) (0.00-0.03) X10*3/uL Absolute Neuts (auto) (2.0-8.3) x10*3/uL Absolute Nucleated RBC (0.0-0.012) X10*3/uL Nucleated RBC % (auto) (0.0-0.2) /100WBC Smear Tech's Comments Sodium 139 (135-145) mmol/L Potassium 4.0 (3.3-5.1) mmol/L Chloride 112 H (96-108) mmol/L Carbon Dioxide 19 L (22-29) mmol/L Anion Gap 12 (12-20) BUN 8 L (9-16) mg/dL Creatinine 0.75 (0.5-1.4) mg/dL Estim Creat Clear Calc 100.7 Estimated GFR > 60 Random Glucose 96 (60-115) mg/dL Calcium 8.3 L D (8.4-10.2) mg/dL Magnesium (1.6-2.6) mg/dL Total Bilirubin (0.0-1.0) mg/dL Direct Bilirubin (0.0-0.5) mg/dL AST (5-31) U/L ALT (0-31) U/L Alkaline Phosphatase (39-117) U/L Total Protein (6.5-8.0) g/dL Albumin (3.5-5.0) g/dL Lipase (8-78) U/L Urine Color Urine Appearance Urine pH (5.0-9.0) Ur Specific [place] (1.005-1.025) Urine Protein (Neg-Trace) mg/dL Urine Glucose (UA) (Negative) mg/dL Urine Ketones (Negative) mg/dL Urine Blood (Negative) Urine Nitrite (Negative) Ur Leukocyte Esterase (Negative) Urine RBC (0-2) /HPF Urine WBC (0-5) /HPF Ur Squamous Epith Cells (0-2) /HPF Urine Bacteria (None Seen) Hyaline Casts (0-2) /LPF Urine Test (NEGATIVE) Stl C. cayetanensis PCR (Not Detect.) Stool Rotavirus A PCR (Not Detect.) Stl Adenov F 40/41 PCR (Not Detect.) Stool Astrovirus (PCR) (Not Detect.) Stool Campylobacter PCR (Not Detect.) Stool Cryptosporidium PCR (Not Detect.) Stl Sh Tox Pr E STEC PCR (Not Detect.) Stool E coli O157 PCR (Not Detect.) Stl Enterotoxigenic E PCR (Not Detect.) Stool EPEC (PCR) (Not Detect.) Stool EAEC (PCR) (Not Detect.) Stl E. histolytica PCR (Not Detect.) Stool Giardia Lamblia PCR (Not Detect.) Stl P. shigelloides PCR (Not Detect.) Stool Salmonella PCR (Not Detect.) Stool Sapovirus (PCR) (Not Detect.) Stl Shigella/EIEC PCR (Not Detect.) St Y.enterocolitica PCR (Not Detect.) Stool Vibrio (PCR) (Not Detect.) Stl Vibrio cholerae PCR (Not Detect.) Stl Norovirus GI/GII PCR (Not Detect.) C. difficile Tox B Gene (Negative) <Kimberly Barakat NP - Last Filed: 07/29/22 11:33> Discharge Plan Discharge Clinical Impression: Gastroenteritis, Acute dehydration <SLIM Lizarraga - Last Filed: 07/28/22 13:09> Patient Disposition: Home, Self-Care <SLIM Lizarraga Last Filed: 07/28/22 13:09> Instructions: Dehydration (ED), Acute Nausea and Vomiting (ED) <SLIM Lizarraga Last Filed: 07/28/22 13:09> Additional Instructions: Symptoms are consistent with dehydration [place] diet increase fluids rest no for an as needed Urine electrolyte imbalance with the elevated blood sugar with signs of dehydration please get labs rechecked within the week Stool cultures are still pending C diff is negative Return if symptoms worsen <SLIM Lizarraga Last Filed: 07/28/22 13:09> Prescriptions: New ondansetron 4 mg tablet,disintegrating 4 mg PO TID PRN (Reason: nausea and vomiting) 4 Days Qty: 12 0RF <SLIM Lizarraga - Last Filed: 07/28/22 13:09> Interventions: ED Discharge Assessment Last Done: 07/28/22 19:14 <SLIM Lizarraga - Last Filed: 07/28/22 13:09> Discharge Date/Time: 07/28/22 19:17 <SLIM Lizarraga Last Filed: 07/28/22 13:09>
[2022-07-28 13:44] LABS: Appearance Urine Cloudy; Color Urine Dark Yellow; Glucose Urine UA Negative (Negative); Leukocyte Esterase Urine Negative (Negative); Nitrite Urine Negative (Negative); Specific Gravity - Urine >= 1.030 (1.005-1.025); UMIC TRIGGER UACC YES; Urine Blood Negative (Negative); Urine Ketones >=160 mg/dL (Negative); Urine Protein 30 (1+) mg/dL (Neg-Trace)
[2022-07-28 13:45] LABS: UPreg QC Valid YES; Urine Pregnancy NEGATIVE (NEGATIVE)
[2022-07-28 13:46] LABS: Bacteria Urine None Seen (None Seen); RBC Urine 0-2 /HPF (0-2); WBC Urine 0-5 /HPF (0-5)
[2022-07-28 13:50] LABS: Basophils Percent Auto 0.2 % (0-2); Eosinophils Percent Auto 0.1 % (0-4); Hemoglobin 15.5 g/dl (12.0-16.0); Imm Gran Abs Auto 0.04 X10*3/uL (0.00-0.03); Imm Gran Pct Auto 0.4 % (0.0-0.4); Lymphocytes Absolute Auto 0.2 X10*3/uL (1.2-4.9); MANUAL DIFF FLAG SCAN; Mean Corpuscular HGB Conc 34.4 g/dl (31.0-35.0); Mean Corpuscular Hemoglobin 29.3 pg (27.0-33.0); Mean Corpuscular Volume 85.1 fL (80.0-98.0); Mean Platelet Volume 10.1 fL (9.4-12.3); Monocytes Absolute Auto 0.4 X10*3/uL (0.1-1.2); Monocytes Percent Auto 3.6 % (2-11); Neutrophils Absolute Auto 9.5 x10*3/uL (2.0-8.3); Neutrophils Percent Auto 93.7 % (45-73); Platelet Count 231 X10*3/uL (160-400); Red Blood Count 5.29 X10*6/uL (4.20-5.50); Red Cell Distribution Width 12.2 % (11.0-16.0); SCAN SMEAR FLAG 1; White Blood Count 10.1 X10*3/uL (4.8-10.8)
[2022-07-28 14:23] LABS: SLIDE REVIEW VERIFIED
[2022-07-28 14:27] LABS: Alanine Aminotransferase 13 U/L (0-31); Albumin Level 5.1 g/dL (3.5-5.0); Alkaline Phosphatase 64 U/L (39-117); Anion Gap 19 (12-20); Aspartate Amino Transferase 20 U/L (5-31); Bilirubin Direct 0.4 mg/dL (0.0-0.5); Bilirubin Total 1.3 mg/dL (0.0-1.0); Blood Urea Nitrogen 10 mg/dL (9-16); Calcium 10.3 mg/dL (8.4-10.2); Carbon Dioxide 17 mmol/L (22-29); Chloride 107 mmol/L (96-108); Creatinine Clr Calc Pharmacy 74.8; Estimated Glomerular Filt Rate > 60; Glucose Random 184 mg/dL (60-115); Lipase 22 U/L (8-78); Magnesium 1.9 mg/dL (1.6-2.6); Potassium 4.7 mmol/L (3.3-5.1); Sodium 138 mmol/L (135-145); Total Protein 8.4 g/dL (6.5-8.0)
[2022-07-28 14:52] LABS: CDiff Gene PCR NEGATIVE (Negative)
[2022-07-28] MEDS: ondansetron HCL 4 MG/2 ML VIAL IVPUSH (16:04)
[2022-07-28] MEDS: 0.9 % Sodium Chloride 1,000 ML 999 ML IV ×2 (16:04→17:37)
--- NOTE | 2022-07-28 16:11 | PC.NURSE ---
Patient woke up this morning at approximately 3am with abdominal pain and nausea and vomiting. Patient states that she tried to tough it out and not come to the hospital but she was unable to keep anything down and also had some diarrhea so she decided to come in. Patient states that she drank some water and gatorade today but she was unable to keep that down.
[2022-07-28 17:48] VITALS: BP 108/57; PULSE 95; RESP 18; TEMP 36.9; O2SAT 100
[2022-07-28 18:43] LABS: Anion Gap 12 (12-20); Blood Urea Nitrogen 8 mg/dL (9-16); Calcium 8.3 mg/dL (8.4-10.2); Carbon Dioxide 19 mmol/L (22-29); Chloride 112 mmol/L (96-108); Creatinine Clr Calc Pharmacy 100.7; Estimated Glomerular Filt Rate > 60; Glucose Random 96 mg/dL (60-115); Sodium 139 mmol/L (135-145)
[2022-07-28 19:13] VITALS: BP 113/69; PULSE 100; RESP 16; O2SAT 96
--- NOTE | 2022-07-28 19:15 | PC.NURSE ---
Patient stating that she is feeling better after getting fluids. Patient looks more relieved after getting fluids.
[2022-07-29 09:18] LABS: Adenovirus F 40/41 Not Detected (Not Detect.); Astrovirus Not Detected (Not Detect.); Campylobacter Not Detected (Not Detect.); Cryptosporidium Not Detected (Not Detect.); Cyclospora cayetanensis Not Detected (Not Detect.); E. coli EAEC Not Detected (Not Detect.); E. coli EPEC Not Detected (Not Detect.); E. coli ETEC Not Detected (Not Detect.); E. coli STEC Not Detected (Not Detect.); Entamoeba histolytica Not Detected (Not Detect.); Giardia lamblia Not Detected (Not Detect.); Plesiomonas shigelloides Not Detected (Not Detect.); Rotavirus A Not Detected (Not Detect.); Salmonella Not Detected (Not Detect.); Sapovirus Not Detected (Not Detect.); Shigella sp./EIEC Not Detected (Not Detect.); Vibrio Not Detected (Not Detect.); Vibrio Cholerae Not Detected (Not Detect.); Yersinia enterocolitica Not Detected (Not Detect.)
[2022-07-29 09:42] LABS: Norovirus GI/GII Detected (Not Detect.)
== END 2022-07-28 19:17 | disposition home or self-care (01) ==
PROVIDERS: Physician Assistant; Emergency Provider Emergency Medicine
DX: K52.9 Noninfective gastroenteritis and colitis, unspecified (principal); A08.11 Acute gastroenteropathy due to Norwalk agent; E86.0 Dehydration; R11.2 Nausea with vomiting, unspecified
CPT/HCPCS: 36415; 80048; 80076; 81001; 81025; 83690; 83735; 85025; 87493; 87507; 96374; 99284; J2405

== ENCOUNTER 2024-05-16 08:39 | Outpatient (AMB) | payer OTHER, SELFPAY ==
--- NOTE | 2024-05-16 08:55 | MHC.OFFVIS ---
Vital Signs 05/16/24 09:05 Height 5 ft 4 in Weight 116 lb BMI 19.9 BP 128/62 Intake Visit Reasons: Breast lump [place] Required: No Information Interpreted: non-clinical & clinical Test Cell Technician: Test Cell Technician Present (Adelia MCCALL) Accompanied by: Self / Same As Patient Allergies ciprofloxacin [From Cipro] Allergy (Severe, Verified 05/16/24 09:03) Joint Pain HPI Comments Details: Presenting complaining of right breast lump over the last 3 weeks no associated nipple discharge or any other symptoms. The patient is Mirena IUD since 2019 No previous Pap smear [facility] Medical History Ovarian cyst rupture Family History Maternal Aunt Breast cancer Social History Alcohol intake: never Female Reproductive History Menstrual Age of Menarche: 12 control method: progestin IUCD (Mirena) Total pregnancies: 0 Physical Exam Vital Signs: Last Vital Signs BP 128/62 05/16/24 09:05 BMI result Body Mass Index 19.9 Chest Breast/axilla palpation: no axillary lymphadenopathy and abnormal palpation of the breast (R breast 0.5 cm lump 8 cm from nipple at 10 o'clock, left breast wnl) Assessment & Plan Assessment & Plan (1) Breast lump on right side at 10 o'clock position: Comment: 8 cm from the nipple Code(s): N63.11 - Unspecified lump in the right breast, upper outer quadrant Category: Medical Plan: Discussed with the patient the finding on Breast exam (breast lump) .The differential diagnosis includes but not limited to lump/cyst/pre cancer/cancer or dense breast tissue. The work up includes breast US and referred the patient for surgical breast consult. Instructions given to patient to schedule 1 months follow-up appointment for annual exam and possible IUD removal in case breast lump turned out to be precancer or cancers since Mirena IUD is associated with an increase in the risk of breast cancer with long-term use. All questions answered. Instructed the patient to call our office back in case a referral appointment is not scheduled, missed or canceled so that we will assist on rescheduling another appointment, the patient verbalized understanding agreed with the plan. Orders: Orders US breast RT complete Today N63.11 - Unspecified lump in the right breast, upper outer quadrant Referrals General Surgery Referral N63.11 - Unspecified lump in the right breast, upper outer quadrant Coding Level of Care Code New Pt Level 3 (46406) Diagnoses Breast lump on right side at 10 o'clock position N63.11
[2024-05-16 09:05] VITALS: BP 128/62; BMI 19.9
== END 2024-05-16 09:29 | disposition home or self-care (01) ==
PROVIDERS: Visit Provider Obstetrics & Gynecology
DX: N63.11 Unspecified lump in the right breast, upper outer quadrant (principal)
CPT/HCPCS: 99203

== ENCOUNTER → 2024-05-16 08:39 | Outpatient (BNVA) | payer OTHER, SELFPAY | PROVIDERS: Visit Provider Obstetrics & Gynecology ==

== ENCOUNTER 2024-06-20 08:14 | Outpatient (REF) | payer OTHER, SELFPAY ==
--- NOTE | ~2024-06-20 | US_ITS ---
EXAMINATION: US DIAGNOSTIC ULTRASOUND BREAST, RIGHT CLINICAL INFORMATION: 24-year-old female palpable right breast lump upper outer quadrant since April 22. Strong family history of breast cancer including 3.. COMPARISON: Comparison is made with relevant prior imaging. TECHNIQUE: Ultrasound of the breast is performed with real-time sellers scale imaging and color Doppler. FINDINGS: Targeted color Doppler ultrasound scanning in the area of the patient's palpable lump in the upper outer quadrant demonstrates a normal-appearing intramammary lymph node at 9:00 10 cm from the nipple correlating with the patient's palpable lump. Otherwise scanning in the upper outer quadrant demonstrates normal fibronodular breast tissue. Results are discussed with the patient at time of visit. US/US breast RT limited mamm only IMPRESSION: Normal intramammary lymph node at 9:00 10 cm from the nipple correlating with the patient's palpable lump. Benign. Otherwise normal fibronodular breast tissue in the upper outer quadrant. Recommend clinical evaluation and follow-up. If any symptoms change or the palpable lump increases in size recommend additional diagnostic imaging at that time. ASSESSMENT: BI-RADS 2: Benign RECOMMENDATION: 1. Patient should be managed based on the clinical impression. Decision to proceed with biopsy should be based on clinical grounds and degree of clinical concern. 2. Otherwise, routine annual screening mammography at age 39. This patient's information was entered into a reminder system with a target due date for their next mammogram. Electronically signed by: Vera Rosa DO 06/20/2024 09:27 AM [place]
== END 2024-06-20 08:15 | disposition home or self-care (01) ==
LOC: HO.MAMMO 08:14
PROVIDERS: Visit Provider Obstetrics & Gynecology
DX: N63.11 Unspecified lump in the right breast, upper outer quadrant (principal)
CPT/HCPCS: 76642

== ENCOUNTER → 2024-06-20 08:30 | Outpatient (BNV) | payer OTHER, SELFPAY | PROVIDERS: Visit Provider Internal Medicine | DX: N63.11 Unspecified lump in the right breast, upper outer quadrant (principal) | CPT/HCPCS: 76642 ==

== ENCOUNTER 2025-01-15 08:57 | Outpatient (AMB) | payer OTHER, SELFPAY ==
--- NOTE | 2025-01-15 09:04 | A.OFFPC_ITS ---
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 // Requesting a PE Intake Note: WRAPPER HANDS SPRAYER Commercial Loan Reviewer Required: No Allergies ciprofloxacin (From Cipro) Allergy (Severe, Verified 01/15/25 09:10) Joint Pain Medication List - Last Reconciled 01/16/25 by SLIM Dolan dextroamphetamine-amphetamine 30 mg (Adderall) 30 mg PO DAILY ondansetron 4 mg PO TID PRN 4 days Tobacco use date assessed: 01/15/25 Dental Screening Dental Screen Date: 01/15/25 Did you have a dental visit in the last 12 months?: No Did you have a dental problem in the last 6 months where you did not have access to dental care?: No Was dental information given to patient?: Patient has dentist HPI HPI Comments History of Present Illness Details This is a 24-year-old female with a past medical history of ADD and anxiety presenting to [facility]. 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 She was evaluated by Gynecology for a right breast lump in April of 2024. She had a breast ultrasound on 06/20/2024 which showed a normal intramammary lymph node correlating to the palpable lump considered benign. She can no longer feel it. She denies breast pain or rashes. She does note there is a strong family history of breast cancer. Her biological mother had three or 4 sisters, and all of them had breast cancer. Her mother is supposed to have genetic testing, but she is not sure she is going to go through with it, and the patient would like testing. Referral placed. She is referred to Gynecology to schedule an annual physical. Patient sees a psychiatrist for attention deficit disorder. She takes Adderall 30 mg daily. ROS: Constitutional: No unexplained weight loss, fever, chills, fatigue or night sweats. Eyes: No vision changes, blurry vision, double vision, eye pain, eye redness, eye discharge. ENT: No hearing loss, sneezing, congestion, runny nose or sore throat. Respiratory: No shortness of breath, cough or sputum production. Cardiovascular: No chest pain, chest pressure or chest discomfort. No palpitations or pedal edema. Gastrointestinal: No anorexia, nausea, vomiting or diarrhea. No abdominal pain or blood in stool. Genitourinary: No dysuria, hematuria, urinary frequency. Neurologic: No headache, dizziness, syncope, unilateral weakness, ataxia, numbness or tingling in the extremities. Musculoskeletal: No muscle pain, back pain, joint pain or swelling. Hematologic/Lymphatics: No bleeding or bruising. No painful lymph nodes. Skin: No rash Endocrine: No cold or heat intolerance. No polyuria or polydipsia. Psychiatric: +anxiety. Denies depression. Physical exam: Constitutional: Alert, in no distress. Eyes: Pupils are equal, round and reactive to light. Extraocular muscles intact. Ear, Nose and Throat: Canals clear. TMs normal. Normal nasal mucosa. No nasal discharge. No oral lesions. Neck: Supple, Full range of motion. No lymphadenopathy. No palpable thyroid masses. Respiratory: Clear to auscultation. Cardiovascular: S1 S2 regular. No murmurs. Gastrointestinal: Abdomen soft, non-tender, non-distended. Normal bowel sounds. No palpable masses. 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 Focused exam of the right breast demonstrates no palpable masses, tenderness, rashes. No axillary adenopathy. Neurologic: No focal neurological deficits. Symmetric patellar reflexes. Moves all extremities spontaneously. Sensation intact bilaterally. Skin: No rashes Musculoskeletal: No gross deformities. Normal range of motion. Extremities: Warm and well perfused. No clubbing, cyanosis or edema. Intact peripheral pulses Psychiatric: Normal mood and affect [facility] Medical History (Updated 01/15/25 @ 17:17 by SLIM Dolan) Family history of breast cancer Routine physical examination Screening for cardiovascular condition Concussion Paroxysmal SVT (supraventricular tachycardia) ADD (attention deficit disorder) Ovarian cyst rupture Surgical History (Updated 01/15/25 @ 09:12 by Chris Fall MA) [place] teeth removed Family History (Updated 01/15/25 @ 09:22 by Chris Fall MA) Maternal Aunt Breast cancer Father Hypertension High cholesterol Alcoholism Paternal Grandfather Clotting disorder Mother Alcoholism Other FH: mental illness Psychiatric disorder Substance abuse Social History (Updated 01/15/25 @ 09:12 by Chris Fall MA) Housing: Apartment Alcohol intake: never Patient Tobacco Use Status: Never used Tobacco e-Cigarette/Vaping Use: Never Used Second Hand Smoke Exposure: Yes Substance Use Type: Marijuana service: No Current occupational status: employed 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 1. Little interest or pleasure in doing things: not at all 2. Feeling down, depressed, or hopeless: not at all 3. Trouble falling or staying asleep, or sleeping too much: not at all 4. Feeling tired or having little energy: not at all 5. Poor appetite or overeating: not at all 6. Feeling bad about yourself - or that you are a failure or have let yourself or your family down: not at all 7. Trouble concentrating on things, such as reading the newspaper or watching television: not at all 8. Moving or speaking so slowly that other people could have noticed. Or the opposite - being so fidgety or restless that you have been moving around a lot more than usual: not at all 9. Thoughts that you would be better off or of hurting yourself in some way: not at all Total score: 0 Depression Screening Interpretation: Negative Depression Screening Done: Yes 97110 - PHQ-9 Billing: Yes Source: Developed by Drs. Arcenio Robertson, Harini Dorsey, Calvin Garg and colleagues, with an educational tanmay from [employer]. Thrive Questionnaire Date Thrive assessed: 01/15/25 I am a: Patient What is your living situation today?: I have a steady place to live Within the past 12 months, did the food you bought not last and you didn't have the money to get more?: Often true Within the past 12 months, did you worry whether your food would run out before you got money to buy more?: Often true Do you have trouble paying for medicines?: I choose not to answer this question Do you have trouble getting transportation to medical appointments?: No Do you have trouble paying your heating and electricity bill?: No Do you have trouble taking care of your child, family member or friend?: No Do you have trouble with day-to-day activities such as bathing, preparing meals, shopping, managing finances, etc.?: No Are you currently unemployed and looking for a job?: No Are you interested in more education?: I choose not to answer this question Please select the resources that you would like help with: None Currently or been in a relationship where the following occur: No concerns reported THRIVE Score: 2 AUDIT C Alcohol Use Questionnaire (AUDIT-C) 1. How often do you have a drink containing alcohol?: Monthly or less 2. How many drinks containing alcohol do you have on a typical day when you are drinking?: 1 or 2 3. How often do you have six or more drinks on one occasion?: Never Total Score: 1 GAYLE-7 AMB Questionnaire GAYLE-7 Date GAYLE - 7 assessed: 01/15/25 Feeling nervous, anxious, or on edge: 1 = Several days Not being able to stop or control worryin = Not at all Worrying too much about different things: 0 = Not at all Trouble relaxin = Not at all Being so restless that it is hard to sit still: 0 = Not at all Becoming easily annoyed or irritable: 0 = Not at all Feeling afraid as if something awful might happen: 0 = Not at all Total GAYLE-7 score (0-4 normal; 5-9 mild; 10-14 moderate; 15-21 severe): 1 Source: Developed by Drs. Arcenio Robertson, Harini Dorsey, Calvin Garg and colleagues, with an educational tanmay from [employer]. GAYLE-7 Assessment Billing GAYLE-7 Assessment Tool: GAYLE-7 Assessment 05523 Physical exam (Primary Care) Vital Signs: Last Vital Signs Temp 98.2 F 01/15/25 09:13 Pulse 72 01/15/25 09:13 Resp 20 01/15/25 09:13 BP 110/58 L 01/15/25 09:13 Pulse Ox 100 01/15/25 09:13 Oxygen Delivery Method Room Air 01/15/25 09:13 BMI result Body Mass Index 19.8 Tobacco/Smoking Status: Tobacco use Status Tobacco use date assessed 01/15/25 01/15/25 09:16 Patient Tobacco Use Status Never used Tobacco 01/15/25 09:16 e-Cigarette/Vaping Use Never Used 01/15/25 09:16 PHQ-9: PHQ-9 Score PHQ-9: Total score 0 01/15/25 17:18 Depression Screening Interpretation: Negative Thrive Assessment: Date of Thrive Assessment Date Thrive assessed 01/15/25 01/15/25 09:22 Currently or been in a relationship where the following occur: No concerns reported Coding Level of Care Code New Pt Prev Care 18-39yr(77698 Diagnoses Routine physical examination Z00.00 Screening for cardiovascular condition Z13.6 Additional Codes GAYLE-7 Assessment Billing - GAYLE-7 Assessment Tool: GAYLE-7 Assessment 58651 ([id number]) PHQ-9 - 22330 - PHQ-9 Billing: Yes ([id number]) Assessment & Plan Assessment & Plan (1) Routine physical examination: Code(s): Z00.00 - Encounter for general adult medical examination without abnormal findings Category: Medical (2) Screening for cardiovascular condition: Code(s): Z13.6 - Encounter for screening for cardiovascular disorders Category: Medical Plan Patient is seen today for a routine physical. As part of this visit we reviewed the following issues, which are considered and essential part of preventative health in this age group: - Breast Cancer screening - Annual Nursing Attendant exam - Blood pressure screening annually - Cholesterol screening - Osteoporosis prevention including calcium/vitamin D intake, weight bearing exercise & smoking cessation - Nutritional and exercise counseling - Counseling of injury prevention including fire prevention, smoke alarms and seat belt usage - Screening for depression - Prevention of and/or testing for infectious diseases - Education about skin cancer - Recommendations about immunizations - Recommendation of an eye exam - Screening for substance abuse Schedule physical exam in 1 year Orders: Orders Lipid Panel Today E78.5 - Hyperlipidemia, unspecified, Z00.00 - Encounter for general adult medical examination without abnormal findings, Z13.6 - Encounter for screening for cardiovascular disorders HIV Ab/Ag Today Z20.2 - Contact with and (suspected) exposure to infections with a predominantly sexual mode of transmission CT NG by PCR Urine Today Z20.2 - Contact with and (suspected) exposure to in fections with a predominantly sexual mode of transmission TSH reflex Free T4 Today Z00.00 - Encounter for general adult medical examination without abnormal findings, Z13.6 - Encounter for screening for cardiovascular disorders Comprehensive Met. Panel Today Z00.00 - Encounter for general adult medical examination without abnormal findings, Z13.6 - Encounter for screening for cardiovascular disorders Complete Blood Count Auto Diff Today Z00.00 - Encounter for general adult medical examination without abnormal findings, Z13.6 - Encounter for screening for cardiovascular disorders Hepatitis C Antibody Today Z20.2 - Contact with and (suspected) exposure to infections with a predominantly sexual mode of transmission Syphilis Screen Today Z20.2 - Contact with and (suspected) exposure to infections with a predominantly sexual mode of transmission Referrals HOME HEALTH OCCUPATIONAL THERAPIST Referral Z00.00 - Encounter for general adult medical examination without abnormal findings Genetics Referral Z80.3 - Family history of malignant neoplasm of breast
[2025-01-15 09:13] VITALS: BP 110/58; PULSE 72; RESP 20; TEMP 36.8; O2SAT 100; BMI 19.8
--- OUTSIDE RECORDS SUMMARY | 2025-01-15 09:39 | XMS_ITS | Clinical Summary ---
Author Organization [facility] Address [address] [place] [phone] Phone Care Team Providers Care Trench Digging Machine Operator Name Role Phone Virginia Arciniega NP Primary Care Provider [phone] Allergies No known active allergies Medications levonorgestreL (MIRENA) 21 mcg/24 hours (8 yrs) 52 mg intrauterine device 1 each by Intrauterine route. Active Active Problems No known active problems Immunizations Immunization Administration Dates Next Due PPD Test 06/15/2023 Social History Tobacco Use Types Packs/Day Years Used Date Smoking Tobacco: Never Education Answer Date Recorded Are you interested in more education? Not on aly e 07/17/2022 Are you concerned about learning? Not on file 07/17/2022 No 07/17/2022 No 07/17/2022 Digital Access Answer Date Recorded No 08/15/2022 No 08/15/2022 Reliable internet access at home? Not on file 08/15/2022 Device with a working camera? Not on file Comments Unknown Sex and Gender Information Value Date Recorded Sex Assigned at Female 02/18/2018 2:05 PM EST Legal Sex Female 2:01 PM EST Gender Identity Female 02/18/2018 2:05 PM EST Sexual Orientation Not on file Last Filed Vital Signs Vital Sign Reading Time Taken Comments Blood Pressure 115/77 12/20/2023 4:06 PM EDT Pulse 92 12/20/2023 4:06 PM EDT Temperature 37.2 C (99 F) 12/20/2023 4:06 PM EDT Respiratory Rate 20 12/20/2023 4:06 PM EDT Oxygen Saturation 99% 12/20/2023 4:06 PM EDT Inhaled Oxygen Concentration - - Weight 52.2 kg (115 lb) 06/15/2023 8:39 AM EDT Height 162.6 cm (5' 4 ) 06/15/2023 8:39 AM EDT Body Mass Index 19.74 06/15/2023 8:39 AM EDT Plan of Treatment Health Maintenance Due Date Last Done Comments DEPRESSION SCREENING 2011 SMOKING Hx and SMOKELESS TOBACCO SCREENING 2012 HEPATITIS C SCREENING 2017 HIV ONE-TIME SCREENING (18-6 5 YEARS) 2017 MENINGOCOCCAL VACCINES (B) ( 2 of 2 - Bexsero SCDM 2-dose series) 04/29/2018 10/27/2017 PAP SMEAR 2020 INFLUENZA VACCINE (#1) 2024 04/08/2021 COVID-19 VACCINE (2024-2 6 season) 2024 04/08/2021, 04/13/2020, 03/23/2020 Adult Td,Tdap Booster 03/30/2033 03/30/2023 , 07/23/2011 HPV VACCINES Completed 11/21/2015, 06/08/2013, 07/23/2011 MENINGOCOCCAL VACCINES (ACWY) Completed , 06/08/2013 HEPATITIS A VACCINES Aged Out No long er eligible based on patient's age to complete this topic HIB VACCINES Aged Out No longer eligi ble based on patient's age to complete this topic PNEUMOCOCCAL VACCINES (0-49 years) Aged Out No longer eligible b ased on patient's age to complete this topic Medical Devices Not on file Insurance [employer] BENEFITS ADMINISTRATORS [employer]EF[employer] ADMINISTRATORS [employer] BENEFITS ADMINISTRATORS [employer] ADMINISTRATORS [employer] BENEFITS ADMINISTRATORS Care Teams Trench Digging Machine Operator Relationship Specialty Start Date End Date Virginia Arciniega NP [address] [place] [address] PCP - General Pediatrics 02/18/18 Additional Source Comments The information contained in this document represents components of the legal health record. It is not the complete legal health record.[facility]
--- OUTSIDE RECORDS SUMMARY | 2025-01-15 09:39 | XMS_ITS | Encounter Summary ---
Author Organization [facility] Address [address] [place] [phone] Phone Care Team Providers Care Automotive Service Advisor Name Role Phone Virginia Arciniega PARTS ADMINISTRATOR Primary Care Provider [phone] [phone] Encounter Details Date Type Department Care Team (Late st Contact Info) Description 11/16/2018 Procedure Pass [facility], [address] [place] [address] Social History Tobacco Use Types Packs/Day Years Used Date Smoking Tobacco: Never Comments Unknown Sex and Gender Information Value Date Recorded Sex Assigned at Female 02/18/2018 2:05 PM EST Legal Sex Female 2:01 PM EST Gender Identity Female 02/18/2018 2:05 PM EST Sexual Orientation Not on file documented as of this encounter Plan of Treatment Not on file documented as of this encounter Visit Diagnoses Not on filedocumented in this encounter Additional Health Concerns Infection Onset Date Last Indicated Resolved Time CoV-Risk 12/20/2023 12/20/2023 12/31/2023 1:2 2 AM EDT documented as of this encounter Care Teams Automotive Service Advisor Relationship Specialty Start Date End Date Virginia Arciniega NP [address] [facility] [address] [place] [address] PCP - General Pediatrics 02/18/18 documented as of this encounter Additional Source Comments The information contained in this document represents components of the legal health record. It is not the complete legal health record.[facility]
--- OUTSIDE RECORDS SUMMARY | 2025-01-15 09:40 | XMS_ITS | Encounter Summary ---
Author Organization [facility] Address [address] [place] [phone] Phone Care Team Providers Care Deburrer Name Role Phone Virginia Arciniega WILD LIFE MANAGER Primary Care Provider [phone] Reason for Referral * MRI/CAT Scan - Closed Specialty Diagnoses / Procedures Referred By Contac t Referred To Contact Radiology Diagnoses Low back pain, unspecified back pain laterality, unspecified chronicity, unspecified whether sciatica present Procedures MRI Lumbar Spine Stephane Caldera DO Phone: tel: fax: [email or web address] Referral ID Status Reason Start Date Expiration Date Visits Re quested Visits Authorized [id number] Closed 11/16/2018 11/16/2019 1 1 Encounter Details Date Type Department Care Team (Late st Contact Info) Description 11/16/2018 Transcribe Orders Virtual Department [address] [place] [address] Stephane Caldera DO [address] [place] [phone] [email or web address] Low back pain, unspecified back pain laterality, unspecified chronicity, unspecified whether sciatica present (Primary Dx) Social History Tobacco Use Types Packs/Day Years Used Date Smoking Tobacco: Never Comments Unknown Sex and Gender Information Value Date Recorded Sex Assigned at Female 02/18/2018 2:05 PM EST Legal Sex Female 2:01 PM EST Gender Identity Female 02/18/2018 2:05 PM EST Sexual Orientation Not on file documented as of this encounter Plan of Treatment Not on file documented as of this encounter Results * MRI LUMBAR SPINE (NEURO) WITHOUT CONTRAST (11/23/2018 12:40 PM EDT) Anatomical Region Laterality Modality L-spine Magnetic Resonan ce 11/23/2018 1:05 PM EDT Impressions 11/23/2018 9:32 PM EDT 1. Normal lumbar spine MRI. 2. No canal or neural foraminal stenosis in the lumbar spine. No disc herniations. POS - [id number] Edited by: Angelica Bridges on 11/23/2018 8:08 PM Narrative 11/23/2018 9:32 PM EDT EXAM: MRI LUMBAR SPINE (NEURO) WITHOUT CONTRAST HISTORY: + PAIN IN LOW BACK [SIGN/SX] LOW BACK PAIN, R/O SPONDYLOLYSIS back pain central lower lumbar region, occasionally radiates to the RIGHT side, occasional numbness in feet. TECHNIQUE: MRI lumbar spine without contrast. Exam performed on a 1.5 Nettie high-field MRI scanner with the following sequences: Sagittal T1, sagittal T2 and sagittal STIR, axial T1 and T2 sequences. COMPARISON: None. FINDINGS: Lumbar vertebrae are normal in height and alignment. There is normal lumbar lordosis. Normal facet joint alignment. No evidence for pars defects. Bone marrow signal is within normal limits. The intervertebral discs are normal in height and signal. Small central endplate depressions at several levels appear developmental. There is no spondylolysis or spondylolisthesis. There is no paraspinous soft tissue abnormality. The conus medullaris is normal, terminating at the mid L1 level. The cauda equina nerve roots are distributed normally. SPINAL LEVELS: T11-T12: No disc herniation. No central canal or neural foraminal stenosis. T12-L1: No disc herniation. No central canal or neural foraminal stenosis. L1-L2: No disc herniation. No central canal or neural foraminal stenosis. L2-L3: No disc herniation. No central canal or neural foraminal stenosis. L3-L4: No disc herniation. No central canal or neural foraminal stenosis. L4-L5: No disc herniation. No central canal or neural foraminal stenosis. L5-S1: No disc herniation. No central canal or neural foraminal stenosis. Procedure Note Melanie Singh MD - 11/23/2018 EXAM: MRI LUMBAR SPINE (NEURO) WITHOUT CONTRAST HISTORY: + PAIN IN LOW BACK [SIGN/SX] LOW BACK PAIN, R/O SPONDYLOLYSIS back pain central lower lumbar region,occasionally radiates to the RIGHT side, occasional numbness in feet. TECHNIQUE: MRI lumbar spine without contrast. Exam performed on a 1.5Tesla high- field MRI scanner with the following sequences: Sagittal T1,sagittal T2 and sagittal STIR, axial T1 and T2 sequences. COMPARISON: None. FINDINGS: Lumbar vertebrae are normal in height and alignment. There is normallumbar lordosis. Normal facet joint alignment. No evidence for parsdefects. Bone marrow signal is within normal limits. The intervertebral discs are normal in height and signal. Small centralendplate depressions at several levels appear developmental. There is nospondylolysis or spondylolisthesis. There is no paraspinous soft tissue abnormality. The conus medullaris is normal, terminating at the mid L1 level. The caudaequina nerve roots are distributed normally. SPINAL LEVELS: T11-T12: No disc herniation. No central canal or neural foraminalstenosis. T12-L1: No disc herniation. No central canal or neural foraminalstenosis. L1-L2: No disc herniation. No central canal or neural foraminalstenosis. L2-L3: No disc herniation. No central canal or neural foraminalstenosis. L3-L4: No disc herniation. No central canal or neural foraminalstenosis. L4-L5: No disc herniation. No central canal or neural foraminalstenosis. L5-S1: No disc herniation. No central canal or neural foraminalstenosis. IMPRESSION: 1. Normal lumbar spine MRI. 2. No canal or neural foraminal stenosis in the lumbar spine. No discherniations. POS - [id number] Edited by: Angelica Bridges on 11/23/2018 8:08 PM Stephane Caldera DO IMG MR XSPECIALTY Final Resul t documented in this encounter Visit Diagnoses Diagnosis Low back pain, unspecified back pain laterality, unspecified chronicity, unspecified whether sciatica present- Primary Low back pain, unspecified back pain laterality, unspecified chronicity, unspecified whether sciatica present documented in this encounter Additional Health Concerns Infection Onset Date Last Indicated Resolved Time CoV-Risk 12/20/2023 12/20/2023 12/31/2023 1:22 AM EDT documented as of this encounter Care Teams Deburrer Relationship Specialty Start Date End Date Virginia Arciniega NP [address] [facility] [address] [place] [address] PCP - General Pediatrics 02/18/18 documented as of this encounter Additional Source Comments The information contained in this document represents components of the legal health record. It is not the complete legal health record.[facility]
== END 2025-01-15 09:53 | disposition home or self-care (01) ==
LOC: HO.HMCFM 08:57
PROVIDERS: PCP Physician Assistant Medical; Visit Provider Physician Assistant Medical
DX: Z00.00 Encounter for general adult medical examination without abnormal findings (principal); Z13.6 Encounter for screening for cardiovascular disorders

== ENCOUNTER → 2025-01-15 08:57 | Outpatient (BNVA) | payer OTHER, SELFPAY | PROVIDERS: Visit Provider Physician Assistant Medical | DX: Z00.00 Encounter for general adult medical examination without abnormal findings (principal); F98.8 Other specified behavioral and emotional disorders with onset usually occurring in childhood and adolescence; Z79.899 Other long term (current) drug therapy; Z80.3 Family history of malignant neoplasm of breast; Z13.31 Encounter for screening for depression; Z13.39 Encounter for screening examination for other mental health and behavioral disorders | CPT/HCPCS: 96127 ==

== ENCOUNTER 2025-01-16 07:57 | Outpatient (REF) | payer OTHER, SELFPAY ==
--- OUTSIDE RECORDS SUMMARY | 2025-01-16 08:02 | XMS_ITS | Encounter Summary ---
Author Organization [facility] Address [address] [place] [phone] Phone Care Team Providers Care Practical Nursing Teacher Name Role Phone Virginia Arciniega DISTANCE EDUCATION DIRECTOR Primary Care Provider [phone] [phone] Encounter Details Date Type Department Care Team (Late st Contact Info) Description 11/16/2018 Procedure Pass [facility], [address] [place] [address] Social History Tobacco Use Types Packs/Day Years [...] documented as of this encounter Care Teams Practical Nursing Teacher Relationship Specialty Start Date End Date Virginia Arciniega NP [address] [facility] [address] [place] [address] PCP - General Pediatrics 02/18/18 documented as of this encounter Additional Source Comments The information contained in this document represents components of the legal health record. It is not the complete legal health record.[facility]
--- OUTSIDE RECORDS SUMMARY | 2025-01-16 08:02 | XMS_ITS | Encounter Summary ---
Author Organization [facility] Address [address] [place] [id number] Phone Care Team Providers Care Fig Bar Machine Operator Name Role Phone Virginia Arciniega DIRECTOR GLOBAL SALES Primary Care Provider [phone] Reason for Referral * MRI/CAT Scan - Closed Specialty Diagnoses / Procedures Referred By Contac t Referred To Contact Radiology Diagnoses Low back pain, unspecified back pain laterality, unspecified chronicity, unspecified whether sciatica present Procedures MRI Lumbar Spine Stephane Caldera DO Phone: tel: fax: mailto:[email or web address] Referral ID Status Reason Start Date Expiration Date Visits Re quested Visits Authorized [id number] Closed 11/16/2018 11/16/2019 1 1 Encounter Details Date Type Department Care Team (Late st Contact Info) Description 11/16/2018 Transcribe Orders Virtual Department [address] [place] [address] Stephane Caldera DO [address] [place] [id number] [email or web address] Low back pain, unspecified back pain laterality, [...] lumbar spine. No disc herniations. POS - [id number] Edited by: Angelica Bridges on 11/23/2018 8:08 [...] the lumbar spine. No discherniations. POS - [id number] Edited by: Angelica Bridges on 11/23/2018 8:08 [...] documented as of this encounter Care Teams Fig Bar Machine Operator Relationship Specialty Start Date End Date Virginia Arciniega NP [address] [facility] [address] [place] [address] PCP - General Pediatrics 02/18/18 documented as of this encounter Additional Source Comments The information contained in this document represents components of the legal health record. It is not the complete legal health record.[facility]
--- OUTSIDE RECORDS SUMMARY | 2025-01-16 08:02 | XMS_ITS | Clinical Summary ---
Author Organization [facility] Address [address] [place] [id number] Phone Care Team Providers Care Air Conditioning Mechanic Industrial Name Role Phone Virginia Arciniega NP Primary Care Provider [phone] Allergies No known active allergies Medications [email or web address] [...] topic Medical Devices Not on file Insurance [employer]EF[employer]MIN[employer]ATORS [employer] BENEFITS ADMINISTRATORS [employer] BENEFITS ADMINISTRATORS [employer]MIN[employer]EFITS [employer]MIN[employer]RATORS Care Teams Air Conditioning Mechanic Industrial Relationship Specialty Start Date End Date Virginia Arciniega NP [address] [place] [address] PCP - General Pediatrics 02/18/18 Additional Source Comments The information contained in this document represents components of the legal health record. It is not the complete legal health record.[facility]
[2025-01-16 11:27] LABS: MANUAL DIFF FLAG NO
[2025-01-16 11:37] LABS: Hematocrit 41.1 % (37.0-47.0); Hemoglobin 13.7 g/dl (12.0-16.0); Imm Gran Abs Auto 0.02 X10*3/uL (0.00-0.03); Imm Gran Pct Auto 0.3 % (0.0-0.4); Lymphocytes Absolute Auto 1.3 X10*3/uL (1.2-4.9); Mean Corpuscular HGB Conc 33.3 g/dl (31.0-35.0); Mean Corpuscular Hemoglobin 29.8 pg (27.0-33.0); Mean Corpuscular Volume 89.3 fL (80.0-98.0); NRBC Abs Auto 0.000 X10*3/uL (0.0-0.012); NRBC Pct Auto 0.0 /100WBC (0.0-0.2); Platelet Count 228 X10*3/uL (160-400); Red Blood Count 4.60 X10*6/uL (4.20-5.50); White Blood Count 7.1 X10*3/uL (4.8-10.8)
[2025-01-16 12:07] LABS: Alanine Aminotransferase 31 U/L (0-31); Albumin Level 5.5 g/dL (3.5-5.0); Alkaline Phosphatase 61 U/L (39-117); Anion Gap 11 (12-20); Aspartate Amino Transferase 29 U/L (5-31); Blood Urea Nitrogen 9 mg/dL (9-16); Calcium 9.9 mg/dL (8.4-10.2); Carbon Dioxide 28 mmol/L (22-29); Chloride 103 mmol/L (96-108); Cholesterol 173 mg/dL (<200); Estimated Glomerular Filt Rate > 60; HDL Cholesterol 77 mg/dL (>40); Potassium 3.3 mmol/L (3.3-5.1); Sodium 139 mmol/L (135-145); Total Protein 8.6 g/dL (6.5-8.0); Triglycerides 41 mg/dL (<150)
[2025-01-16 12:11] LABS: HIV Num 1 0.05 S/CO (0.00-0.99); ~HepC Num1 0.13 S/CO (0.00-0.79); ~Hepatitis B Surface Antibody REACTIVE (Nonreactive); ~Hepatitis C Antibody Nonreactive (Nonreactive)
[2025-01-16 12:12] LABS: Syphilis Screen Nonreactive (Nonreactive)
[2025-01-16 12:56] LABS: CT PCR Urine NOT DETECTED (Not Detect.); NG PCR Urine NOT DETECTED (Not Detect.)
== END 2025-01-16 07:58 | disposition home or self-care (01) ==
LOC: HO.WFDLDS 07:57
PROVIDERS: Referring Provider Physician Assistant Medical; Visit Provider Physician Assistant Medical
DX: Z00.00 Encounter for general adult medical examination without abnormal findings (principal); Z11.4 Encounter for screening for human immunodeficiency virus [HIV]; Z13.6 Encounter for screening for cardiovascular disorders; E78.5 Hyperlipidemia, unspecified; Z20.2 Contact with and (suspected) exposure to infections with a predominantly sexual mode of transmission
CPT/HCPCS: 36415; 80053; 80061; 84443; 85025; 86706; 86780; 86803; 87389; 87491; 87591